=== PATIENT | male | born 1995 | race Caucasian/White ===

== ENCOUNTER 2016-07-31 00:27 | Emergency (ER) | payer OTHER ==
[2016-07-31 00:38] VITALS: TEMP 36.3; O2SAT 97
[2016-07-31 01:24] LABS: BLOOD UREA NITROGEN 7 mg/dl (7-18); CALCIUM 9.3 mg/dl (8.5-10.1); CARBON DIOXIDE 26 mmol/L (21-32); CHLORIDE 105 mmol/L (98-107); GLUCOSE 106 mg/dl (70-99); POTASSIUM 3.2 mmol/L (3.5-5.1); SODIUM 143 mmol/L (136-145)
[2016-07-31] MEDS ORDERED: POTASSIUM CHLORIDE 10 MEQ TABCR PO STA (04:18)
--- NOTE | 2016-07-31 04:18 | EMERGENCY ROOM VISIT NOTE ---
History First contact with patient: 00:30 Chief Complaint: ALCOHOL OVERDOSE Stated Complaint: ALCOHOL OVERDOSE Nursing Triage Summary: pt was found on [place] hugging a pole with his shoe laces tide together. pt unable to answer questions correctly. alfredo parker request for security to be at bedside History of Present Illness The patient is a 21 year old male who presents to the Emergency Room with complaints of a alcohol intoxication he was found hugging a telephone pole with the shoes tied together. Patient states he had a lot of alcohol tonight. He states he did drugs but is unwilling to tell what type he did. Patient denies chest pain, dyspnea, fever, chills, abdominal pain or any other medical complaints. Review of Systems See HPI for pertinent positives & negatives. A total of 10 systems reviewed and were otherwise negative. Past Medical/Surgical History None Social History Smoking Status: Unknown if Ever Smoked Alcohol Use: occasionally Drug Use: none Occupation Status: [employer] Current/Historical Medications Unable to Obtain Active Prescriptions or Reported Meds Physical Exam Vital Signs Date Time Temp Pulse Resp B/P Pulse Ox O2 Delivery O2 Flow Rate FiO2 07/31/16 02:47 116 18 104/58 98 Room Air 07/31/16 02:30 123 21 94 Room Air 07/31/16 02:00 108 20 96 Room Air 07/31/16 01:30 100 17 98 Room Air 07/31/16 01:00 101 23 93 Room Air 07/31/16 00:39 126 07/31/16 00:38 97 Room Air 07/31/16 00:38 36.3 126 10 139/67 97 Room Air Physical Exam PHYSICAL EXAM: VITALS: Vitals are noted on the nurse's note and reviewed by myself. Vital signs stable. GENERAL: White male every 2 hours odor appearing agitated, in no acute distress , nondiaphoretic, well-developed well-nourished. The patient is visibly intoxicated. SKIN: The skin was without obvious lacerations, abrasions, or rashes. There is no tenting of the skin. Capillary reflex less than 2 seconds. HEENT: Normocephalic, atraumatic. PERRLA. EOMI. Conjunctiva with mild injection without icterus. Tympanic membranes without erythema or effusion bilaterally no hemotympanum. External auditory canals are clear. Nares patent bilaterally. No epistaxis. Oropharynx without erythema or exudate. Uvula midline. Oral mucosal moist. No lymphadenopathy. Neck is supple without cervical spine tenderness. HEART: Regular rate and rhythm without murmurs gallops or rubs. Peripheral pulses 2+. LUNGS: Clear to auscultation bilaterally without wheezes, rales or rhonchi. ABDOMEN: Positive bowel sounds x 4. Normal tympanic percussion. Soft, nontender, without masses or organomegaly. MUSCULOSKELETAL: Gross motor function of the upper and lower extremities intact. The patient has a staggering gait. NEUROLOGIC: The patient is visibly intoxicated. Once they were more sober they were alert and oriented to person place and time. Medical Decision & Procedures Laboratory Results 07/31/16 00:58 Test 07/31/16 00:58 Anion Gap 12.0 mmol/L (3-11) Estimated GFR () 111.4 Estimated GFR (Non- 96.1 BUN/Creatinine Ratio 6.0 (10-20) Calcium Level 9.3 mg/dl (8.5-10.1) Ethyl Alcohol mg/dL 293.0 mg/dl (0-3) ED Course Prior records/ancillary studies reviewed. Triage Nursing notes reviewed. Additional history obtained from EMS The patient's history was concerning for altered mental status and a possible alcohol overdose. Differential diagnosis: Etiologies such as alcohol intoxication, toxicologic, infection, hypoglycemia, electrolyte abnormalities, cardiac sources, intracerebral event, neurologic, as well as others were entertained. Physical examination: As above. The patient is clinically intoxicated. no trauma noted. ER treatment provided: Monitoring Aspiration precautions The patient was frequently reassessed. Diagnostic interpretation by me: Cardiac monitoring did not reveal any evidence of dysrhythmia. The labs revealed hypokalemia and this is replaced orally. The patient's blood alcohol level was 293 mg/dL. The patient's history was reviewed once they were more coherent and their intoxication cleared. The patient states they have been in good health recently and had no medical complaints. The patient admitted to consuming alcohol. No additional concerning findings were noted. The patient complained of no symptoms to suggest assault. This appears to be consistent with an isolated overdose of alcohol. By the evaluation outlined above emergent etiologies such as trauma, infection, hypoglycemia, electrolyte abnormalities, cardiac sources, intracerebral event, neurologic,as well as others were deemed relatively unlikely. The patient was informed about the findings as listed above. The patient was counseled on the dangers of excessive alcohol use. I gave my usual and customary discussion regarding this issue. All questions were answered and the patient was pleased with the treatment. Return instructions were outlined and the patient was discharged in stable condition once their mental status improved and a safe destination was confirmed. Outpatient prescription management: None Referral: The patient was referred back to their primary care physician for follow-up in 2 to 3 days for a recheck of their current condition. Medical Decision As above Impression Primary Impression: Alcohol use with intoxication Additional Impression: Hypokalemia Departure Information Dispostion Home / Self-Care Condition GOOD Prescriptions Unable to Obtain Active Prescriptions or Reported Meds Patient Instructions My [employer] Additional Instructions Keep well-hydrated. Tylenol every 6 hours as needed for pain (Maximum 3000 mg Tylenol in 24 hr period). Follow up with family doctor and/or health services as needed. No driving for the next 24 hours. Recommend no alcohol for the next 48 hours and avoid binge drinking in the future. Return to ER sooner for chest pain, abdominal pain, worsening signs or symptoms or as needed. Problem Qualifiers
[2016-07-31] MEDS ORDERED: POTASSIUM CHLORIDE 10 MEQ TABCR ONE (07:24)
[2016-07-31 09:02] VITALS: BP 111/81; PULSE 120; O2SAT 99
== END 2016-07-31 09:21 | disposition home or self-care (01) ==
LOC: EDBD 00:27 → C.EDB 00:29
DX: F10.129 Alcohol abuse with intoxication, unspecified (principal); E87.6 Hypokalemia

== ENCOUNTER 2017-05-14 17:50 | Emergency (ER) | payer OTHER ==
[~2017-05-14] VITALS: Ht 175.3 cm; Wt 70.9 kg
[2017-05-14 18:00] VITALS: Ht 175.3 cm; Wt 70.9 kg
--- NOTE | 2017-05-14 18:03 | EMERGENCY ROOM VISIT NOTE ---
History Report prepared by Vishal: Brennan Medina Under the Supervision of: Dr. Jasen Adhikari M.D. First contact with patient: 17:51 Stated Complaint: ETOH History of Present Illness The patient is a 21 year old male who presents to the Emergency Room for evaluation of constant alcohol intoxication. Per nursing staff, the patient was found laying on the ground in the mud at the [facility] [employer] game. They note that the patient was incontinence of urine. The patient admits to drinking alcohol today. He denies any other drug use. He denies any recent falls or trauma. The patient denies vomiting. HPI limited secondary to alcohol intoxication. Source of History: patient History Limited By: intoxication (alcohol) Quality: other (alcohol intoxication) Timing: constant Associated Symptoms: No vomiting Review of Systems ROS limited secondary to alcohol intoxication. Past Medical & Surgical Medical Problems: (1) No Known Active Medical Problems Family History No pertinent family history stated. Social History Smoking Status: Unknown if Ever Smoked Alcohol Use: occasionally Drug Use: none Occupation Status: [employer] student Current/Historical Medications No Active Prescriptions or Reported Meds Allergies Coded Allergies: Amoxicillin (Verified Allergy, Unknown, UNKNOWN, 05/14/17) Physical Exam Vital Signs Date Time Temp Pulse Resp B/P (MAP) Pulse Ox O2 Delivery O2 Flow Rate FiO2 05/14/17 20:38 108 18 128/76 98 Room Air 05/14/17 19:35 107 16 156/94 98 Room Air 05/14/17 18:43 104 16 156/94 97 Room Air 05/14/17 18:09 111 05/14/17 18:00 36.4 116 18 156/94 98 Room Air Physical Exam GENERAL: Patient is in no acute distress. Smells of alcohol. HEENT: No acute trauma, normocephalic atraumatic, mucous membranes moist, no nasal congestion, no scleral icterus. Pupils equal and reactive to light. No obvious head trauma. NECK: No stridor, no adenopathy, no meningismus, trachea is midline. LUNGS: Clear to auscultation bilaterally, no wheeze, no rhonchi, breath sounds equal. HEART: Without murmurs gallops or rubs, regular rate and rhythm. ABDOMEN: Soft, nontender, bowel sounds positive, no hernias, no peritonitis. EXTREMITIES: No cyanosis or edema, full range of motion of all the joints without pain or difficulty, no signs for acute trauma. NEUROLOGIC: Moderately intoxicated with alcohol, no acute motor or sensory deficits, no focal weakness. SKIN: No rash, no jaundice, no diaphoresis. Medical Decision & Procedures Laboratory Results 05/14/17 18:13 Test 05/14/17 18:13 Anion Gap 8.0 mmol/L (3-11) Est Creatinine Clear Calc Drug Dose 121.5 ml/min Estimated GFR () 129.7 Estimated GFR (Non- 111.9 BUN/Creatinine Ratio 6.1 (10-20) Calcium Level 8.7 mg/dl (8.5-10.1) Ethyl Alcohol mg/dL 297.0 mg/dl (0-3) Laboratory results reviewed by me. ED Course 1753: The patient was evaluated in room A12B. A complete history and physical exam was performed. 0: Reevaluated the patient. A sober friend is coming to pick him up. Discussed results and discharge instructions: he verbalized understanding and agreement. The patient is ready for discharge. Medical Decision The patient is a 21 year old male who presents to the ED with complaints of alcohol intoxication. Differential diagnoses considered include drug/alcohol abuse, dehydration, vomiting, head trauma, and infection. The patient presents with a presumed alcohol overdose. No vomiting or trauma reported. The patient did appear moderately intoxicated with alcohol clinically. On exam, I could find no evidence for trauma. Patient had no complaints of pain. No headache. Renal panel testing shows no evidence for significant electrolyte abnormality or kidney failure. Alcohol level returned at nearly 300, consistent with his alcohol use today. The patient was watched here for several hours, he rested. He awoke and was clinically much more sober. He was able to contact friends. The patient is being discharged in the care of his friends. He was told to avoid alcohol in excess. No more alcohol this evening. He will stay hydrated tonight. Medication Reconcilliation Current Medication List: was personally reviewed by me Blood Pressure Screening Patient's blood pressure: Elevated blood pressure Blood pressure disposition: Elevated BP felt to be situational Impression Primary Impression: Alcohol overdose Additional Impression: Alcoholic intoxication Scribe Attestation The scribe's documentation has been prepared under my direction and personally reviewed by me in its entirety. I confirm that the note above accurately reflects all work, treatment, procedures, and medical decision making performed by me. Departure Information Dispostion Home / Self-Care Prescriptions No Active Prescriptions or Reported Meds Referrals No Doctor, Assigned (PCP) Forms HOME CARE DOCUMENTATION FORM, IMPORTANT VISIT INFORMATION Patient Instructions Alcohol Abuse - [facility], Alcohol Intoxication - [facility], [facility]: [employer] Students and Alcohol Related Visits, [facility] Additional Instructions no more alcohol today or tonight stay with friends stay well hydrated rest return if worsening do not use alcohol in excess Problem Qualifiers Primary Impression: Alcohol overdose Encounter type: initial encounter Injury intent: undetermined intent Qualified Codes: T51.94XA - Toxic effect of unspecified alcohol, undetermined, initial encounter Additional Impression: Alcoholic intoxication Complication of substance-induced condition: uncomplicated Qualified Codes: F10.920 - Alcohol use, unspecified with intoxication, uncomplicated
[2017-05-14 18:55] LABS: BUN/CREATININE RATIO 6.1 (10-20); CALCIUM 8.7 mg/dl (8.5-10.1); CREATININE 0.97 mg/dl (0.60-1.40); POTASSIUM 3.5 mmol/L (3.5-5.1)
[2017-05-14 22:05] VITALS: BP 123/83; PULSE 131; TEMP 36.9; O2SAT 98
== END 2017-05-14 22:20 | disposition home or self-care (01) ==
LOC: EDBD 17:50 → C.EDA 17:52
DX: T51.94XA Toxic effect of unspecified alcohol, undetermined, initial encounter (principal)